=== PATIENT | male | born 1960 | race Caucasian/White ===

== ENCOUNTER → 2017-04-07 | Outpatient (CLI) | payer OTHER ==
--- NOTE | 2017-04-07 16:06 | MR ---
EXAMINATION TYPE: MR knee RT wo con DATE OF EXAM: 04/07/2017 COMPARISON: Plain film 03/22/2017 HISTORY: Right Knee Pain x6 weeks TECHNIQUE: Multiplanar, multisequence imaging of the right knee is performed without IV contrast. FINDINGS: MEDIAL MENISCUS: Some linear increased signal within the posterior horn of the medial meniscus does n ot definitively extend to the articular surface. LATERAL MENISCUS: There is some linear increased signal in the body which may extend to the articular surface seen best on coronal image #20 of the T2 weighted data set CRUCIATE LIGAMENTS: The anterior and posterior cruciate ligaments are intact and unremarkable. COLLATERAL LIGAMENTS: There is some fluid signal coursing along the medial collateral ligament which could possibly represent some strain EXTENSOR MECHANISM: Visualized quadriceps and patellar tendons are intact. EFFUSION: Suprapatellar joint effusion is present. POPLITEAL CYST: No popliteal/roblero cyst. TRICOMPARTMENT SPACES: Joint space loss is present greatest in the medial compartment and patellofemo ral joint CARTILAGE: Grade 3 to grade IV chondromalacia present in the posterior patella as well as medial comp artment. BONE MARROW SIGNAL: Subchondral reactive marrow signal changes are present especially in the medial c ompartment. OTHER: Edema signal present at the pes anserinus insertion IMPRESSION: Osteoarthritis. Difficult to exclude a tear of the lateral meniscus as described. Joint e ffusion. There may be a component of pes anserine bursitis. Additional findings above.
== END | disposition home or self-care (01) ==
LOC: RADMRIMAIN 15:16
PROVIDERS: ATTEND Orthopaedic Surgery
DX: M17.11 Unilateral primary osteoarthritis, right knee (principal); M70.51 Other bursitis of knee, right knee